=== PATIENT | male | born 1960 | race Caucasian/White ===

== ENCOUNTER 2019-04-07 10:59 | Emergency (ER) | payer BC ==
[~2019-04-07] VITALS: Ht 188 cm; Wt 94.1 kg
[2019-04-07 12:16] LABS: BASO % 0.6 % (0.0-1.0); EOS % 0.2 % (0.0-3.0); HEMATOCRIT 45.5 % (42.0-52.0); HEMOGLOBIN 14.6 g/dl (13.5-17.5); LYMPH # 1.4 10^3/uL (1.5-5.0); LYMPH % 26.9 % (24.0-44.0); MEAN CORPUSCULAR HEMOGLOBIN 29.6 pg (27.0-33.0); MEAN CORPUSCULAR HGB CONC 32.1 g/dl (32.0-36.5); MEAN CORPUSCULAR VOLUME 92.1 fl (80.0-96.0); MONO # 0.6 10^3/uL (0.0-0.8); MONO % 11.4 % (0.0-5.0); NEUTROPHILS # 3.1 10^3/uL (1.5-8.5); NEUTROPHILS % 60.5 % (36.0-66.0); PLATELET COUNT, AUTOMATED 208 10^3/uL (150-450); RED BLOOD COUNT 4.94 10^6/uL (4.30-6.10); WHITE BLOOD COUNT 5.1 10^3/uL (4.0-10.0)
[2019-04-07] MEDS ORDERED: NS 1,000 ML IV ONE ×2 (13:00→15:30)
[2019-04-07] MEDS ORDERED: ONDANSETRON 4MG/2ML VIAL (J2405) As Ordered ONE (13:01)
[2019-04-07] MEDS ORDERED: ONDANSETRON 4MG/2ML VIAL (J2405) IV ONE (13:15)
--- NOTE | 2019-04-07 15:19 | REP ---
CT ABDOMEN AND PELVIS WITHOUT CONTRAST: CT abdomen and pelvis performed without oral or IV contrast. Sagittal and coronal reconstruction images are performed. Comparison made with prior study of 05/30/2008. Visualized lung bases demonstrate no infiltrate. There is mild fibroatelectatic change. Several small hypodensities in the liver have density measurements compatible with cysts, measuring up to slightly greater than 1 cm in diameter. Spleen is normal in size with no intrinsic abnormality. The adrenal glands are normal. Pancreas is grossly unremarkable. Two cystic structures in the right kidney are visualized, both measuring 1.6 to 1.7 cm in diameter. No intrarenal calculi are seen. There is no hydronephrosis or hydroureter bilaterally. However, there does appear to be a 3 mm calculus in the distal right ureter. No bladder calculi are seen. No gross bladder wall thickening is seen. There is no abdominal aortic aneurysm. There is no adenopathy. There is no free air or free fluid. There is no bowel wall thickening. There is no evidence of appendicitis. No pelvic mass is seen. There are degenerative changes of the spine. IMPRESSION: Liver cysts and right renal cysts. No hydroureteronephrosis bilaterally. However, there does appear to be a 3 mm stone in the distal right ureter. Electronically Signed by Jesus Rabago MD 04/07/2019 03:42 P
[2019-04-07] MEDS ORDERED: KETOROLAC 30 MG/ML VIAL (J1885) IV ONE (15:30)
[2019-04-07] MEDS ORDERED: TAMSULOSIN 0.4 MG CAP PO ONE (15:30)
[2019-04-07] MEDS ORDERED: CIPROFLOXACIN 400 MG in IV 1 EA IV ONE (16:00)
[2019-04-07] MEDS ORDERED: KETO10TAB PO (16:36)
[2019-04-07] MEDS ORDERED: CIPR-249 PO (16:36)
[2019-04-07] MEDS ORDERED: FLOM0.4C39 PO (16:36)
[2019-04-07] MEDS ORDERED: NORC1TAB7 PO (16:36)
[2019-04-07 17:01] VITALS: BP 146/91
== END 2019-04-07 17:12 | disposition home or self-care (01) ==
LOC: M ED 10:59
DX: N20.1 Calculus of ureter (principal); N28.1 Cyst of kidney, acquired; K76.89 Other specified diseases of liver; Z88.0 Allergy status to penicillin; Z79.899 Other long term (current) drug therapy
CPT/HCPCS: 74176; 80047; 81001; 85025; 87088; 87186; 96361; 96374; 96375; 99284; J1885; J2405

== ENCOUNTER → 2019-08-01 | Outpatient (CLI) | payer BC ==
[~2019-08-01] MED LIST: CIPR-249 PO; FLOM0.4C39 PO; KETO10TAB PO; NORC1TAB7 PO
== END ==
LOC: M LABSMTC 13:12
PROVIDERS: ATTEND Anesthesiology
DX: Z01.818 Encounter for other preprocedural examination (principal); Z11.59 Encounter for screening for other viral diseases
CPT/HCPCS: C9803; U0003

== ENCOUNTER → 2019-08-29 | Outpatient (CLI) | payer BC | LOC: M LABSMTC 11:44 | PROVIDERS: ATTEND Anesthesiology | DX: Z03.818 Encounter for observation for suspected exposure to other biological agents ruled out (principal); Z11.59 Encounter for screening for other viral diseases | CPT/HCPCS: 87486; 87581; 87633; 87798; C9803 ==

== ENCOUNTER 2019-09-01 08:19 | Day surgery (SDC) | payer BC ==
[~2019-09-01] VITALS: Ht 188 cm; Wt 85.3 kg
[~2019-09-01 08:19] MED LIST changes: +NS 1,000 ML IV ONE
[2019-09-01] MEDS ORDERED: propofoL 200 MG/20 ML VIAL As Ordered ONE ×2 (08:58→09:39)
--- NOTE | 2019-09-01 09:23 | ROOR ---
Patient Name: Jf Bautista Procedure Date: 09/01/2019 8:57 AM Date of : 1960 Age: 59 Room: [facility] Gender: Male Note Status: Finalized Procedure: Total Colonoscopy to Cecum + Cold Snare Polypectomy + Hemoclip Indications: Screening for colorectal malignant neoplasm Providers: Jayy Abraham MD Referring MD: Chasidy JIMENEZ MD Requesting Provider: Medicines: Monitored Anesthesia Care Complications: No immediate complications. Procedure: Pre-Anesthesia Assessment: - The heart rate, respiratory rate, oxygen saturations, blood pressure, adequacy of pulmonary ventilation, and response to care were monitored throughout the procedure. The Colonoscope was introduced through the anus and advanced to the cecum, identified by appendiceal orifice and ileocecal valve. The colonoscopy was performed without difficulty. The patient tolerated the procedure well. The quality of the bowel preparation was excellent. Findings: The perianal and digital rectal examinations were normal. Non-bleeding internal hemorrhoids were found during retroflexion. The hemorrhoids were Grade I (internal hemorrhoids that do not prolapse). A medium polyp was found at 10 cm proximal to the anus. The polyp was pedunculated. The polyp was removed with a cold snare. Resection and retrieval were complete. To prevent bleeding after the polypectomy, one hemostatic clip was successfully placed (MR conditional). There was no bleeding at the end of the procedure. Scattered small-mouthed diverticula were found in the recto-sigmoid colon and sigmoid colon. The exam was otherwise without abnormality on direct and retroflexion views. Impression: - Non-bleeding internal hemorrhoids. - One medium polyp at 10 cm proximal to the anus, removed with a cold snare. Resected and retrieved. Clip (MR conditional) was placed. - Diverticulosis in the recto-sigmoid colon and in the sigmoid colon. - The examination was otherwise normal on direct and retroflexion views. - The exam was otherwise normal to the cecum. Recommendation: - Patient has a contact number available for emergencies. The signs and symptoms of potential delayed complications were discussed with the patient. Return to normal activities tomorrow. Written discharge instructions were provided to the patient. - High fiber diet. - Discharge patient to home. - Continue present medications. - Repeat colonoscopy in 5 years for surveillance based on pathology results. - Return to referring physician. - Telephone GI clinic for pathology results in 1 week. - The findings and recommendations were discussed with the patient's family. Jayy Abraham MD Jayy Abraham MD 09/01/2019 9:22:27 AM Electronically signed by Jayy Abraham MD Number of Addenda: 0 Note Initiated On: 09/01/2019 8:57 AM Estimated Blood Loss: Estimated blood loss: none.
[2019-09-01 09:47] VITALS: BP 157/86
== END 2019-09-01 09:48 | disposition home or self-care (01) ==
LOC: M OPP 08:19
PROVIDERS: ATTEND Internal Medicine Gastroenterology
DX: Z12.11 Encounter for screening for malignant neoplasm of colon (principal); D12.6 Benign neoplasm of colon, unspecified; K64.0 First degree hemorrhoids; K57.30 Diverticulosis of large intestine without perforation or abscess without bleeding; Z88.0 Allergy status to penicillin; Z87.891 Personal history of nicotine dependence

== ENCOUNTER → 2021-07-03 | Outpatient (REF) | payer BC, OTHER ==
[~2021-07-03] MED LIST changes: -NS 1,000 ML IV ONE
== END ==
LOC: M SFHCDERM 14:11
PROVIDERS: ATTEND Nurse Practitioner Family
DX: D22.5 Melanocytic nevi of trunk (principal)

== ENCOUNTER → 2022-12-14 | Outpatient (REF) | payer OTHER | LOC: M LAB REF 16:24 | PROVIDERS: ATTEND Nurse Practitioner Family | DX: N50.811 Right testicular pain (principal); N20.0 Calculus of kidney ==

== ENCOUNTER → 2022-12-18 | Outpatient (CLI) | payer OTHER | LOC: M WHC 09:04 | PROVIDERS: ATTEND Nurse Practitioner Family | DX: N50.811 Right testicular pain (principal); R93.89 Abnormal findings on diagnostic imaging of other specified body structures ==

== ENCOUNTER 2024-09-13 12:40 | Day surgery (SDC) | payer BC ==
[~2024-09-13] VITALS: Ht 185.4 cm; Wt 82.9 kg
[~2024-09-13 12:40] MED LIST changes: -FLOM0.4C39 PO; +TAMS-18 PO
[2024-09-13 15:20] VITALS: TEMP 97.7
[2024-09-13 15:40] VITALS: BP 116/66; O2SAT 98
== END 2024-09-13 15:50 | disposition home or self-care (01) ==
LOC: M OPP 12:40
PROVIDERS: ATTEND Internal Medicine Gastroenterology
DX: Z12.11 Encounter for screening for malignant neoplasm of colon (principal); D12.2 Benign neoplasm of ascending colon; K64.0 First degree hemorrhoids; K57.30 Diverticulosis of large intestine without perforation or abscess without bleeding; Z86.0100 Personal history of colon polyps, unspecified; Z88.0 Allergy status to penicillin

== ENCOUNTER → 2024-11-30 | Outpatient (CLI) | payer BC | LOC: M RAD 08:22 | PROVIDERS: ATTEND Physician Assistant Medical | DX: R10.2 Pelvic and perineal pain (principal); K40.90 Unilateral inguinal hernia, without obstruction or gangrene, not specified as recurrent ==

== ENCOUNTER → 2025-02-06 | Outpatient (CLI) | payer BC | LOC: M EKG 08:04 | PROVIDERS: ATTEND Surgery | DX: Z01.818 Encounter for other preprocedural examination (principal); I44.0 Atrioventricular block, first degree; R94.31 Abnormal electrocardiogram [ECG] [EKG] ==

== ENCOUNTER 2025-02-12 07:57 | Day surgery (SDC) | payer BC ==
[~2025-02-12] VITALS: Ht 185.4 cm; Wt 85.1 kg
[~2025-02-12 07:57] MED LIST changes: +ACETAMINOPHEN 1000MG/100ML IV BAG As Ordered ONE; +KETOROLAC 30 MG/ML 1 ML VIAL As Ordered ONE; +LIDOCAINE 2% 100 MG/5 ML SDV (FOR ANES.) As Ordered ONE; +MIDAZOLAM INJ 2 MG/2 ML VIAL As Ordered ONE; +ONDANSETRON 4MG/2ML VIAL As Ordered ONE; +ROCURONIUM BROMIDE 50MG/5ML VIAL As Ordered ONE; +SUGAMMADEX SODIUM 500 MG/5 ML VIAL As Ordered ONE; +dexAMETHasone 4 MG/ML 1 ML VIAL As Ordered ONE
[2025-02-12] MEDS: LR 1,000 ML IV SCH (08:20)
[2025-02-12] MEDS: HEPARIN SOD 5000 UNITS/ML 1 ML VIAL/SYRINGE SQ ONE (11:02)
[2025-02-12] MEDS: ceFAZolin SOD 2 GM IV ONCE IV ONE (11:05)
[2025-02-12] MEDS ORDERED: HYDROmorphone HCL 2 MG/ML 1 ML VIAL As Ordered ONE (11:35)
[2025-02-12] MEDS ORDERED: LR 1,000 ML IV SCH (12:50)
[2025-02-12] MEDS ORDERED: ONDANSETRON 4MG/2ML VIAL IV PRN (12:50)
[2025-02-12] MEDS ORDERED: HYDROMORPHONE HCL 0.5 MG/0.5 ML SYRINGE IV PRN (12:50)
[2025-02-12 14:05] VITALS: BP 141/85; TEMP 97; O2SAT 98
== END 2025-02-12 14:17 | disposition home or self-care (01) ==
LOC: M SDC 07:57
PROVIDERS: ATTEND Surgery
DX: K40.90 Unilateral inguinal hernia, without obstruction or gangrene, not specified as recurrent (principal); K21.9 Gastro-esophageal reflux disease without esophagitis; F41.9 Anxiety disorder, unspecified; F12.10 Cannabis abuse, uncomplicated; Z88.0 Allergy status to penicillin
CPT/HCPCS: 49650; C1781; J0131; J0665; J0688; J1100; J1171; J1885; J2250; J2405; J3010; S2900